=== PATIENT | male | born 1965 | race Caucasian/White ===

== ENCOUNTER 2020-11-13 04:17 | Inpatient (IN) | payer BC ==
[2020-11-12 13:47] VITALS: BMI 26.6
[2020-11-13] MEDS ORDERED: THROMBIN (BOVINE) 5,000 UNIT VIAL TP ONE ×3 (07:22→09:10)
[2020-11-13] MEDS ORDERED: BENZOIN/ALOE VERA/STORAX/TOLU 58 ML BOTTLE ONE (07:39)
[2020-11-13] MEDS ORDERED: HEPARIN NA (PORCINE) 5,000 UNITS/ML 1ML VIAL ONE (07:39)
[2020-11-13] MEDS ORDERED: PROPOFOL 20 ML ONE ×2 (07:49)
[2020-11-13] MEDS ORDERED: ROCURONIUM BROMIDE 50 MG/5 ML SYRINGE ONE ×2 (07:49→09:41)
[2020-11-13] MEDS ORDERED: LIDOCAINE HCL/PF 2% SDV 5ML VIAL ONE (07:50)
[2020-11-13] MEDS ORDERED: MIDAZOLAM HCL 2 MG/2 ML SINGLE DOSE VIAL ONE (07:50)
[2020-11-13] MEDS ORDERED: GENTAMICIN SO4 80 MG/2 ML VIAL ONE (07:51)
[2020-11-13] MEDS ORDERED: LIDOCAINE 1%/EPI 1:100000 (50 ML MULTI DOSE VIAL) ONE (07:51)
[2020-11-13] MEDS ORDERED: VANCOMYCIN 1,000 MG VIAL (RESTRICTED TO ID ONLY) ONE (08:37)
[2020-11-13] MEDS ORDERED: TRANEXAMIC ACID 1000 MG/10 ML VIAL ONE (08:38)
[2020-11-13] MEDS ORDERED: SODIUM CHLORIDE 0.9% P/F 10 ML VIAL IJ ONE (08:40)
[2020-11-13] MEDS ORDERED: ceFAZolin 2 GRAM PREMIX BAG IVPB ONE (08:40)
[2020-11-13] MEDS ORDERED: ceFAZolin SODIUM 1 GM VIAL ONE (08:40)
[2020-11-13] MEDS ORDERED: DEXAMETHASONE SOD PHOSPHATE 4 MG/1 ML VIAL ONE (08:43)
[2020-11-13] MEDS ORDERED: ONDANSETRON 4 MG/2 ML VIAL ONE (08:43)
[2020-11-13] MEDS ORDERED: LIDOCAINE 1%/EPI 1:100000 (50 ML MULTI DOSE VIAL) INF ONE ×2 (08:51→10:18)
[2020-11-13] MEDS ORDERED: BACITRACIN 15 GM TUBE TOPICAL OINTMENT ONE (09:10)
[2020-11-13] MEDS ORDERED: BACITRACIN 50,000 UNITS VIAL TP ONE (09:20)
[2020-11-13] MEDS ORDERED: GENTAMICIN SO4 80 MG/2 ML VIAL IVPB ONE (09:20)
[2020-11-13] MEDS ORDERED: HYDROGEN PEROXIDE 473 ML PO ONE (09:23)
[2020-11-13] MEDS ORDERED: THROMBIN (BOVINE) 20,000 UNIT VIAL TP ONE ×2 (10:09→10:30)
[2020-11-13] MEDS ORDERED: ACETAMINOPHEN INJECTION 100 ML IVPB ONE (10:52)
[2020-11-13] MEDS ORDERED: BUPIVACAINE LIPOSOME/PF (EXPAREL) 266 MG/20 ML VIAL ONE (11:05)
[2020-11-13] MEDS ORDERED: BUPIVACAINE HCL/PF 0.5% (5MG/ML) 10 ML VIAL ONE (11:05)
[2020-11-13] MEDS ORDERED: BUPIVACAINE LIPOSOME/PF (EXPAREL) 266 MG/20 ML VIAL NR ONE (11:38)
[2020-11-13] MEDS ORDERED: BUPIVACAINE HCL/PF 0.5% (5MG/ML) 10 ML VIAL IJ ONE (11:38)
[2020-11-13] MEDS ORDERED: GLYCOPYRROLATE 0.2 MG/1 ML VIAL ONE (11:45)
[2020-11-13] MEDS ORDERED: PROMETHAZINE HCL 25 MG/1 ML VIAL IVPB PRN ×2 (12:36)
[2020-11-13] MEDS ORDERED: DEXAMETHASONE SOD PHOSPHATE 4 MG/1 ML VIAL IVPUSH PRN (12:36)
[2020-11-13] MEDS ORDERED: ONDANSETRON 4 MG/2 ML VIAL IVPUSH PRN ×2 (12:36)
[2020-11-13] MEDS ORDERED: oxyCODONE HCL 5 MG TABLET PO PRN ×2 (12:39)
[2020-11-13] MEDS ORDERED: HYDROmorphone HCl 2 MG/ML VIAL SQ PRN (12:39)
[2020-11-13] MEDS ORDERED: LACTATED RINGERS SOLUTION 1,000 ML IV SCH ×2 (12:45)
[2020-11-13] MEDS ORDERED: HYDROmorphone *PCA* 10MG/50ML DISP.SYRIN PCA SCH (12:45)
[2020-11-13] MEDS ORDERED: CEFAZOLIN 2 GM/D5W 2 GM/50 ML ML IVPB SCH (14:00)
[2020-11-13] MEDS: LACTATED RINGERS SOLUTION 1,000 ML IV SCH (17:14)
[2020-11-13] MEDS: CEFAZOLIN 2 GM/D5W 2 GM/50 ML ML IVPB SCH ×2 (18:10→21:29)
[2020-11-14] MEDS: CEFAZOLIN 2 GM/D5W 2 GM/50 ML ML IVPB SCH (02:20)
[2020-11-14] MEDS: LACTATED RINGERS SOLUTION 1,000 ML IV SCH ×3 (02:26→16:52)
[2020-11-14] MEDS ORDERED: ONDANSETRON 4 MG/2 ML VIAL IVPUSH PRN (12:39)
[2020-11-14] MEDS ORDERED: ACETAMINOPHEN 325 MG TABLET (FP) PO ONE (20:03)
[2020-11-14] MEDS: DOCUSATE SODIUM 100 MG CAPSULE (FP) PO SCH (21:07)
[2020-11-15] MEDS ORDERED: ACETAMINOPHEN 325 MG TABLET (FP) PO PRN (02:04)
[2020-11-15 08:28] LABS: BASO % 0.2 % (0-2.0); EOS % 0.1 % (0-4.5); HEMOGLOBIN 12.4 GM/dL (11.7-16.9); LYMPH % 7.3 % (8-40); MCH 30.8 pg (25.7-33.7); MCHC 33.5 g/dl (32.0-35.9); MEAN CELL VOLUME 92.1 fl (80-96); MEAN PLT VOLUME 8.5 fl (7.5-11.1); MONO % 8.9 % (3.8-10.2); NEUT % 83.5 % (42.8-82.8); PLATELET COUNT 225 K/MM3 (134-434); RBC 4.01 M/mm3 (4.00-5.60); RDW 13.9 % (11.9-15.9); WHITE BLOOD COUNT 14.3 K/mm3 (4.0-10.0)
[2020-11-15 08:45] LABS: CALCIUM 8.5 mg/dL (8.5-10.1)
[2020-11-15 08:49] LABS: CREATININE 0.9 mg/dL (0.55-1.3)
[2020-11-15] MEDS: DOCUSATE SODIUM 100 MG CAPSULE (FP) PO SCH (09:40)
[2020-11-15 14:40] VITALS: BP 136/83; PULSE 110; TEMP 100
== END 2020-11-15 18:21 | disposition home or self-care (01) | DRG 472 ==
LOC: J2C 04:17 → EDSTATUS 08:00 → J6S 16:56
PROVIDERS: ADMIT Orthopaedic Surgery Orthopaedic Surgery of the Spine; ATTEND Nurse Practitioner Family
PROC: 0PH304Z Insertion of Internal Fixation Device into Cervical Vertebra, Open Approach (ICD-10-PCS; 2020-11-13)
PROC: 0PB30ZZ Excision of Cervical Vertebra, Open Approach (ICD-10-PCS; 2020-11-13)
PROC: 01N10ZZ Release Cervical Nerve, Open Approach (ICD-10-PCS; 2020-11-13)
PROC: 00NW0ZZ Release Cervical Spinal Cord, Open Approach (ICD-10-PCS; 2020-11-13)
PROC: B01BZZZ Fluoroscopy of Spinal Cord (ICD-10-PCS; 2020-11-13)
PROC: 0RG10A0 Fusion of Cervical Vertebral Joint with Interbody Fusion Device, Anterior Approach, Anterior Column, Open Approach (ICD-10-PCS; principal; 2020-11-13 08:00)
DX: M50.023 Cervical disc disorder at C6-C7 level with myelopathy (principal); M47.12 Other spondylosis with myelopathy, cervical region; M48.02 Spinal stenosis, cervical region; M40.292 Other kyphosis, cervical region
CPT/HCPCS: 36415; 71045-TC-FY; 72125-TC; 76000-TC-FY; 80048; 85025; 86850; 86900; 86901; 87040; 94760; 97116-GP; 97162-GP; J0131; J1644